=== PATIENT | male | born 1950 | race Hispanic/Latino ===

== ENCOUNTER 2018-07-15 21:33 | Emergency (ER) | payer MEDICARE ==
[2014-11-25 07:50] VITALS: BMI 31.4
[2018-07-15 21:46] VITALS: TEMP 98
--- NOTE | 2018-07-15 21:49 | ED PDOC ---
Arrival/HPI - General Chief Complaint: Chest Pain Time Seen by Provider: 07/15/18 21:45 Historian: Patient - History of Present Illness Narrative History of Present Illness (Text): 07/15/18 21:46 67 year old male, whose past medical history includes CAD and hypertension, presents to the emergency department complaining of shortness of breath and chest pain that began an hour ago after eating and drinking wine at a restaurant. Patient describes it as a sharp sensation, but denies any radiation. Patient reports taking proair with no relief. He reports the the chest pain and shortness breath worsened and decided to come in for evaluation. Patient denies any fever, chills, nausea, vomiting, diarrhea, urinary symptoms, back pain, neck pain, headache, dizziness, or any other complaints. PMD: Dr. Blackwood Cardio: Dr. Sampson Time/Duration: 1 hour Symptom Onset: Gradual Symptom Course: Worsening Activities at Onset: Light Past Medical History - Provider Review Nursing Documentation Reviewed: Yes - Infectious Disease Hx of Infectious Diseases: None - Cardiac Hx Pacemaker: No Other/Comment: cardiac problem - Neurological Hx Paralysis: No - Hematological/Oncological Hx Blood Transfusions: No - Musculoskeletal/Rheumatological Hx Musculoskeletal Disorders: No - Psychiatric Hx Emotional Abuse: No Hx Physical Abuse: No Hx Substance Use: No - Anesthesia Hx Anesthesia Reactions: No Hx Malignant Hyperthermia: No - Suicidal Assessment Feels Threatened In Home Enviroment: No Family/Social History - Physician Review Nursing Documentation Reviewed: Yes Family/Social History: No Known Family HX Smoking Status: Unknown If Ever Smoked Hx Alcohol Use: Yes (OCCASSIONAL) Hx Substance Use: No Allergies/Home Meds Allergies/Adverse Reactions: Allergies Penicillins Allergy (Verified 07/15/18 21:42) SWELLING Home Medications: Home Meds Medication Instructions Recorded Confirmed Aspirin [Ecotrin] 325 mg PO DAILY 09/17/16 09/17/16 Atorvastatin [Lipitor] 10 mg PO DIN 09/17/16 09/17/16 Atorvastatin [Lipitor] 10 mg PO DIN 09/17/16 09/17/16 Diltiazem HCl [Diltiazem ER] 300 mg PO DAILY 09/17/16 09/17/16 Esomeprazole Magnesium [Nexium] 40 mg PO DAILY 09/17/16 09/17/16 Flaxseed/Omega3,6,9/Fatty Acid 2 each PO BID 09/17/16 09/17/16 [Flax Seed Oil 1,300 mg Softgel] Levocetirizine Dihydrochloride 5 mg PO DAILY 09/17/16 09/17/16 [Xyzal] Metoprolol Succinate XL [Toprol XL] 25 mg PO DAILY 09/17/16 09/17/16 Niacin [Niacin ER] 500 mg PO DAILY 09/17/16 09/17/16 Ranitidine HCl [Zantac 300] 300 mg PO DAILY 09/17/16 09/17/16 Fluticasone/Vilanterol [Breo 1 puff INH DAILY 07/15/18 07/15/18 Ellipta 100-25 Mcg INH] Umeclidinium [place] [Incruse 62.5 mcg IH DAILY 07/15/18 07/15/18 Ellipta] Review of Systems - Physician Review All systems were reviewed & negative as marked: Yes - Review of Systems Constitutional: absent: Fevers, Other Respiratory: SOB Cardiovascular: Chest Pain Gastrointestinal: absent: Diarrhea, Nausea, Vomiting Genitourinary Male: absent: Dysuria, Frequency, Hematuria Musculoskeletal: absent: Back Pain, Neck Pain Neurological: absent: Headache, Dizziness Physical Exam - Physical Exam Narrative Physical Exam (Text): Gen: VS reviewed, alert, well developed, well nourished, nontoxic, mild distress. ENT: normal pharynx. Eye: EOMI, PERRL. Neck: no JVD, supple, no adenopathy. CV: rapid rate, regular rhythm, no rubs, no murmur, no gallops, S1, S2, pulses equal and strong. Pulm: no distress, clear to auscultation, no wheeze, no rhonchi, breath sounds equal, no rales. Abd: mild to moderate epigastric tenderness with some guarding, no rebound, no rigidity, normal bowel sounds. Ext: no edema. Skin: good color, no rash, no cyanosis. Psych: responds appropriately to questions, normal affect. Neuro: oriented x 3, CN2-12 intact grossly, motor intact, sensation intact. Vital Signs Reviewed: Yes Vital Signs Pulse Resp BP Pulse Ox 07/15/18 21:44 100 H 18 167/95 H 98 Temperature: Afebrile Blood Pressure: Hypertensive Pulse: Tachycardic Respiratory Rate: Normal Appearance: Positive for: Well-Appearing, Non-Toxic, Comfortable Medical Decision Making ED Course and Treatment: 07/15/18 21:46 Impression: 67 year old male presents complaining of shortness of breath and chest pain one hour prior to arrival after eating and drinking wine at a restaurant. Plan: -- EKG -- Labs -- CXR -- Lidocaine -- Reassess and disposition Prior Visits: Notes and results from previous visits were reviewed. Patient was last seen in the emergency department on 09/17/16 presents complaining of left sided chest pain. Patient was admitted. Progress Notes: 07/16/18 00:33 re-eval, patient reports that the abdominal pain is mild. on repeat abdominal exam there is mild diffuse lower abdominal tenderness without g/r/r 07/16/18 01:30 patient seen for epigastric pain, found to have a terminal ileitis on CT, patient nontoxic and afebrile. case discussed with dr. wick and agrees to empirically tx with abx and close outpt follow up. 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 patient appeared to have good understand and will make the appropriate follow up. - Lab Interpretations I have reviewed the lab results: Yes - RAD Interpretation Narrative RAD Interpretations (Text): EXAM: CT SCAN OF THE ABDOMEN AND PELVIS WITH CONTRAST Electronically signed on Jul 16, 2018 1:08:33 AM EDT by: Courtney Lopez M.D Uncomplicated colonic diverticulosis. Moderate diffuse thickening and enhancement of the terminal ileum. The liver is of uniform attenuation without mass or defect. There is no intra or extrahepatic biliary ductal dilatation. The spleen is normal. The gallbladder is within normal limits. The pancreas is of normal contour and attenuation characteristics. There is no evidence of adrenal mass. 3.2 cm left renal simple cyst. Both kidneys demonstrate prompt and equal nephrograms. The kidneys are normal in size, shape and configuration. There is no evidence of renal or ureteral mass. No renal or ureteral calculi are identified. There is no hydroureter or hydronephrosis. No evidence for appendicitis. There is no bowel wall thickening. No evidence for small or large bowel obstruction. There is no evidence of abdominal ascites or lymphadenopathy. There is no evidence of intrinsic or extrinsic bladder mass. There is no pelvic ascites or lymphadenopathy. Mild prostatomegaly. Images of the lung bases show no evidence of pleural or parenchymal mass. There are no pleural effusions. The bony structures are free of lytic or blastic lesions. IMPRESSION: Uncomplicated terminal ileitis. Infectious/inflammatory pathology is included in the differential diagnosis. No perforation or pneumatosis intestinalis. 07/16/18 01:12 CXR Impression: As read by me, no focal infiltrate, no pneumothorax, no cardiomegaly. Licensing Director: ED Physician, Radiologist - EKG Interpretation EKG Interpretation (Text): 07/15/18 21:36 EKG shows Sinus Tachycardia at 110 BPM with normal QRS, normal axis, no acute ST/T wave abnormality. Interpreted by me. Interpreted by ED Physician: Yes Type: 12 lead EKG - Scribe Statement The provider has reviewed the documentation as recorded by the Ema Mcmahon Provider Scribe Attestation: All medical record entries made by the Scribe were at my direction and personally dictated by me. I have reviewed the chart and agree that the record accurately reflects my personal performance of the history, physical exam, medical decision making, and the department course for this patient. I have also personally directed, reviewed, and agree with the discharge instructions and disposition. Disposition/Present on Arrival - Present on Arrival Any Indicators Present on Arrival: No History of DVT/PE: No History of Uncontrolled Diabetes: No Urinary Catheter: No History of Decub. Ulcer: No History Surgical Site Infection Following: None - Disposition Have Diagnosis and Disposition been Completed?: Yes Diagnosis: Terminal ileitis Disposition: HOME/ ROUTINE Disposition Time: 01:32 Patient Plan: Discharge Patient Problems: Current Active Problems Problem Status Onset Terminal ileitis Acute Condition: STABLE Additional Instructions: Return for any new or worsening symptoms especially fever greater than 100.4, worsening abdominal pain, rectal bleeding. Follow up with your primary care doctor as soon as possible. Follow up with your dealer sales rep as soon as possible. BRIGIDA NOGUERA, thank you for letting us take care of you today. Your provider was Dr. Kermit Vail and you were treated for abdominal pain. The emergency medical care you received today was directed at your acute symptoms. If you were prescribed any medication, please fill it and take as directed. It may take several days for your symptoms to resolve. Return to the Emergency Department if your symptoms worsen, do not improve, or if you have any other problems. Please contact your doctor or call one of the physicians/clinics you have been referred to that are listed on the Patient Visit Information form that is included in your discharge packet. Bring any paperwork you were given at discharge with you along with any medications you are taking to your follow up visit. Our treatment cannot replace ongoing medical care by a primary care provider outside of the emergency department. Thank you for allowing the [facility] team to be part of your care today. If you had an X-Ray or CT scan: A Radiologist will review the ED reading if any change in treatment is needed we will contact you. If you had a blood, urine, or wound culture: It will take several days for the results, if any change in treatment is needed we will contact you. If you had an STI test: It will take 48 hours for the results. Please call after 1 week if you have not heard back. Prescriptions: Ciprofloxacin [Cipro] 500 mg PO BID 7 Days #14 tab Metronidazole [Flagyl] 500 mg PO TID 7 Days #20 tablet Referrals: Odell Blackwood MD [Primary Care Provider] - Follow up with primary Forms: [employer] (Vietnamese), WORK NOTE
[2018-07-15 22:02] LABS: ALB/GLOB RATIO 1.3 (1.1-1.8); ALBUMIN 4.9 g/dL (3.0-4.8); ALT/SGPT 48 U/L (7-56); AST/SGOT 28 U/L (17-59); BLOOD UREA NITROGEN 14 mg/dL (7-21); CALCIUM 10.1 mg/dL (8.4-10.5); GFR NON-AFRICAN AMERICAN > 60; LIPASE 311 U/L (23-300)
[2018-07-15 22:20] LABS: TROPONIN I < 0.01 ng/mL
[2018-07-15 22:21] LABS: BASO # 0.01 K/mm3 (0.0-2.0); BASO % 0.1 % (0.0-3.0); EOS # 0.1 (0.0-0.7); EOS % 0.4 % (1.5-5.0); GRAN # 11.22 (1.4-6.5); GRAN % 78.4 % (50.0-68.0); HEMOGLOBIN 14.5 g/dL (14.0-18.0); LYMPH # 1.9 (1.2-3.4); LYMPH % 13.3 % (22.0-35.0); MEAN CELL VOLUME 88.7 fl (80.0-105.0); MEAN CORPUSCULAR HEMOGLOBIN 30.5 pg (25.0-35.0); MEAN CORPUSCULAR HGB CONC 34.4 g/dl (31.0-37.0); MEAN PLATELET VOLUME 9.5 fl (7.0-11.0); MONO # 1.1 (0.1-0.6); MONO % 7.8 % (1.0-6.0); RBC 4.76 10^6/uL (3.5-6.1); RED CELL DISTRIBUTION WIDTH 12.7 % (11.5-14.5); WHITE BLOOD COUNT 14.3 10^3/ul (4.5-11.0)
[2018-07-15 22:52] LABS: INR 1.15; PARTIAL THROMBOPLASTIN TIME 29.4 Seconds (25.1-36.5); PROTHROMBIN TIME 13.1 SECONDS (9.4-12.5)
[2018-07-15] MEDS ORDERED: Iohexol 350 MG/100 ML VIAL ONE (23:38)
[2018-07-16 02:05] VITALS: BP 139/78; PULSE 85; RESP 18; O2SAT 100
--- NOTE | 2018-07-16 09:17 | RAD ---
Date of service: 07/15/2018 HISTORY: chest pain COMPARISON: No prior. FINDINGS: LUNGS: No active pulmonary disease. PLEURA: No significant pleural effusion identified, no pneumothorax apparent. CARDIOVASCULAR: No atherosclerotic calcification present Normal. OSSEOUS STRUCTURES: No significant abnormalities. VISUALIZED UPPER ABDOMEN: Normal. OTHER FINDINGS: None. IMPRESSION: No active disease.
--- NOTE | 2018-07-16 10:16 | CARD ---
APPROVED REPORT Date of service: 07/15/2018 EKG Measurement Heart [id number] <Conclusion> Sinus tachycardia Otherwise normal ECG
--- NOTE | 2018-07-16 10:21 | CT ---
Date of service: 07/15/2018 PROCEDURE: CT Abdomen and Pelvis with contrast HISTORY: epigastric pain COMPARISON: None. TECHNIQUE: Contrast dose: 100 cc of Omni 350 Radiation dose: Total exam DLP = 991.69 mGy-cm. This CT exam was performed using one or more of the following dose reduction techniques: Automated exposure control, adjustment of the mA and/or kV according to patient size, and/or use of iterative reconstruction technique. FINDINGS: LOWER THORAX: Unremarkable. LIVER: Unremarkable. No gross lesion or ductal dilatation. Fatty infiltration of the liver GALLBLADDER AND BILE DUCTS: Unremarkable. PANCREAS: Unremarkable. No gross lesion or ductal dilatation. SPLEEN: Unremarkable. ADRENALS: Unremarkable. No mass. KIDNEYS AND URETERS: Unremarkable. No hydronephrosis. No solid mass. VASCULATURE: Unremarkable. No aortic aneurysm. BOWEL: Unremarkable. No obstruction. No gross mural thickening. APPENDIX: Normal appendix. PERITONEUM: Unremarkable. No free fluid. No free air. LYMPH NODES: Unremarkable. No enlarged lymph nodes. BLADDER: Unremarkable. REPRODUCTIVE: Unremarkable. BONES: No acute fracture. OTHER FINDINGS: The report concurs with the preliminary [facility] report the finding of mural thickening in the terminal ileum is equivocal. IMPRESSION: No acute intra-abdominal findings
== END 2018-07-16 01:51 | disposition home or self-care (01) ==
LOC: ED 21:33
DX: K50.00 Crohn's disease of small intestine without complications (principal); I25.10 Atherosclerotic heart disease of native coronary artery without angina pectoris; I10 Essential (primary) hypertension
CPT/HCPCS: 71045; 74177; 80053; 83690; 84443; 84484; 85025; 85610; 85730; 93005; 99284; Q9967